=== PATIENT | female | born 1965 ===

== ENCOUNTER 2021-04-27 09:04 | Inpatient (IN) ==
[~2021-04-27 09:04] MED LIST: Buffered Lidocaine 1% SYRIN 1 ml INTRADERM ONE; DiMENhydriNATE IV 50 mg/ml 1 ml VIAL IV PUSH PRN; Heparin 5000 UNITS/ML 1 mL VIAL ONE; Lactated Ringers 1000 ml BAG 1,000 ML IV SCH; Lidocaine 2% PF 5 ML VIAL ONE; Midazolam 2 mg/2 ml VIAL 1 mg/ml 2 ml VIAL (2 mg) ONE; Naloxone 0.4 mg VIAL 0.4 mg/ml 1 ml VIAL IV PRN; Propofol 10 MG/ML 20 ML BTL ONE; Rocuronium 50 mg VIAL 10 mg/ml 5 ml VIAL (50 mg) ONE; ceFAZolin 1 GM ADVAN 1 GM ADDV.VIAL IVPB ONE; ceFAZolin 2 GM PREMIX 2 GM/50 ML BAG ONE; fentaNYL 250 mcg/5 ml 50 MCG/ML 5 ml VIAL (250 MCG) ONE
[2021-04-27] MEDS ORDERED: Lidocaine 1.5% EPI 1:200,000 30 ML SDV ONE (09:33)
[2021-04-27] MEDS ORDERED: Methylene Blue 0.5 % 50 MG/10 ML AMP IV ONE (09:33)
[2021-04-27] MEDS ORDERED: Lidocaine 1% w EPI 1:100,000 MDV 20 ML VIAL ONE (09:53)
[2021-04-27] MEDS ORDERED: Acetaminophen IV 1 GM/100ML 100 ML IV ONE (10:44)
[2021-04-27] MEDS ORDERED: Succinylcholine 200 mg VIAL 20 mg/ml 10 ml VIAL (200 mg) ONE (12:02)
[2021-04-27] MEDS ORDERED: Rocuronium 50 mg VIAL 10 mg/ml 5 ml VIAL (50 mg) ONE (12:02)
[2021-04-27] MEDS ORDERED: HYDROcodone/ACET. 7.5/325 LIQ 15 ML UDC PO PRN (14:28)
[2021-04-27] MEDS ORDERED: Ondansetron 4 mg VIAL 2 MG/ML 2 ml VIAL IV PRN (14:28)
[2021-04-27] MEDS ORDERED: fentaNYL 100 mcg/2 ml 50 MCG/ML VIAL ONE (14:53)
[2021-04-27] MEDS: fentaNYL 100 mcg/2 ml 50 MCG/ML VIAL IV PRN ×4 (14:56→15:27)
[2021-04-27] MEDS ORDERED: DiMENhydriNATE IV 50 mg/ml 1 ml VIAL ONE (15:34)
[2021-04-27] MEDS ORDERED: Morphine 4 MG/ML VIAL (1 ml) ONE (15:34)
[2021-04-27] MEDS: Morphine 4 MG/ML VIAL (1 ml) IV PRN ×2 (15:38→15:58)
[2021-04-27] MEDS: HYDROmorphone 0.5 MG/0.5 ML SYRINGE IV SLOW PU PRN ×2 (18:54→22:56)
[2021-04-27] MEDS: Heparin 5000 UNITS/ML 1 mL VIAL SUBCUT SCH (21:39)
[2021-04-28] MEDS: Heparin 5000 UNITS/ML 1 mL VIAL SUBCUT SCH ×3 (06:10→21:23)
[2021-04-28] MEDS: Lactated Ringers 1000 ml BAG 1,000 ML IV SCH ×2 (07:29→14:54)
[2021-04-28] MEDS: HYDROmorphone 0.5 MG/0.5 ML SYRINGE IV SLOW PU PRN ×3 (08:37→21:23)
[2021-04-28] MEDS: D5W 1/2 NS KCl 20 meq 1000 ml 1,000 ML IV SCH (16:53)
[2021-04-28] MEDS ORDERED: Famotidine IV 10 MG/ML 2 ml VIAL (20 mg) ONE (17:17)
[2021-04-28] MEDS: Famotidine IV 10 MG/ML 2 ml VIAL (20 mg) IV SLOW PU SCH (21:23)
[2021-04-29] MEDS: D5W 1/2 NS KCl 20 meq 1000 ml 1,000 ML IV SCH ×2 (00:54→08:44)
[2021-04-29] MEDS: Heparin 5000 UNITS/ML 1 mL VIAL SUBCUT SCH (05:56)
[2021-04-29 07:54] VITALS: BP 126/56
[2021-04-29] MEDS: Famotidine IV 10 MG/ML 2 ml VIAL (20 mg) IV SLOW PU SCH (08:38)
== END 2021-04-29 12:15 | disposition home or self-care (01) | DRG 403 ==
LOC: AA 09:04 → SSU 16:44
PROVIDERS: ADMIT Surgery; ATTEND Surgery

== ENCOUNTER 2022-04-15 11:25 | Observation (INO) ==
[2022-04-15] MEDS ORDERED: NS 0.9% 1000 ml BAG 1,000 ML IV ONE (11:56)
[2022-04-15] MEDS ORDERED: Ondansetron 4 mg VIAL 2 MG/ML 2 ml VIAL IV PRN (14:09)
[2022-04-15] MEDS ORDERED: HYDROmorphone 0.5 MG/0.5 ML SYRINGE IV SLOW PU PRN (14:34)
[2022-04-15] MEDS: Lactated Ringers 1000 ml BAG 1,000 ML IV SCH (15:15)
[2022-04-15] MEDS: Pantoprazole VIAL 40 MG VIAL IV SCH (20:23)
[2022-04-16] MEDS: Lactated Ringers 1000 ml BAG 1,000 ML IV SCH (01:11)
[2022-04-16 06:58] LABS: ABS Eosinophils 0.1 10^3/ul (0-0.6); ABS Lymphocytes 0.4 10^3/ul (1.0-4.8); ABS Monocytes 0.3 10^3/ul (0-0.8); ABS Neutrophils 2.2 10^3/ul (1.5-7.7); Eosinophil % 4.7 %; Hematocrit 33 % (35-47); Hemoglobin 10.9 g/dL (12.0-16.0); Lymphocyte % 13.4 %; Mean Corpuscular HGB Conc 33 g/dL (31-36); Mean Corpuscular Hemoglobin 28 pg (27-31); Mean Corpuscular Volume 86 fL (80-97); Mean Platelet Volume 8.7 fL (7.4-10.4); Platelet Count 123 10^3/uL (150-450); Red Blood Count 3.86 10^6 /uL (3.70-4.87); Red Cell Distribution Width 15 % (10-15); White Blood Count 3.1 10^3/uL (3.5-10.8)
[2022-04-16 07:29] LABS: Albumin 3.2 g/dL (3.2-5.2); Albumin/Globulin Ratio 1.8 (1-3); Calcium 8.5 mg/dL (8.6-10.3); Globulin 1.8 g/dL (2-4); Potassium 3.8 mmol/L (3.5-5.0); Total Bilirubin 0.8 mg/dL (0.2-1.0); eGFR CKD-EPI 82.2 (>60)
[2022-04-16] MEDS: Pantoprazole VIAL 40 MG VIAL IV SCH (10:37)
[2022-04-16 18:00] VITALS: BP 131/75
== END 2022-04-16 18:50 | disposition home or self-care (01) ==
LOC: EDHOLD 11:25 → ED 11:25 → MERGE 14:09 → EDHOLD 14:48 → SSU 14:57
PROVIDERS: ADMIT Surgery; ATTEND Surgery